=== PATIENT | male | born 1980 | race Caucasian/White ===

== ENCOUNTER 2016-11-25 13:25 | Emergency (ER) | payer BC ==
[~2016-11-25] VITALS: Ht 172.7 cm; Wt 79.4 kg
--- NOTE | ~2016-11-25 | EKG ---
[place] [address] [address] [facility] [place] [address] ELECTROCARDIOGRAM REPORT Name: MAURI POSEY Room #: [facility]#: [id number] Admission: 11/25/16 Attend Phys: Discharge: 11/25/16 Date of : 84 Report #: [id number] THIS REPORT FOR: //name// [facility] ED Test Date: 2016-11-25 Test Time: 13:29:29 Pat Name: MAURI POSEY Department: Room: Gender: Press Offbearer: ZULEMA : 1980 Requested By: Nallely Sheehan Order Number: [id number] MD: Atul Chase Measurements Intervals [place] Rate: 94 P: 74 CA: 176 QRS: 25 QRSD: 94 T: 54 QT: 328 QTc: 411 Interpretive Statements Sinus rhythm Baseline wander in lead(s) II,III,aVF No previous ECG available for comparison Electronically Signed On 11-26-2016 7:55:53 [employer] by Atul Chase [email or web address] <ELECTRONICALLY SIGNED> By: Atul Chase MD, [facility] 11/26/16 [id number] Atul Chase MD, FACC /EPI
[2016-11-25 14:32] VITALS: BP 111/75
== END 2016-11-25 14:33 | disposition home or self-care (01) ==
LOC: ER 13:25
DX: R07.89 Other chest pain (principal); R11.0 Nausea; R42 Dizziness and giddiness; R61 Generalized hyperhidrosis; F10.99 Alcohol use, unspecified with unspecified alcohol-induced disorder; F12.90 Cannabis use, unspecified, uncomplicated; Z87.891 Personal history of nicotine dependence